=== PATIENT | female | born 1945 ===

== ENCOUNTER 2016-12-16 13:01 | Day surgery (SDC) | payer MEDICARE, MEDICAID ==
[2016-12-13 10:10] VITALS: BMI 34.0
[2016-12-16] MEDS ORDERED: Propofol 10 mg/ml Inj (20 ML) ONE ×2 (13:56→14:22)
--- NOTE | 2016-12-16 14:11 | CP.SDSHP ---
Same Day Surgery H & P - History Proposed Procedure: Removal of chemoport Pre-Op Diagnosis: Chemoport : completion of chemo - Previous Medical/Surgical History Cardiac: Hypertension Endocrine/Metabolic: Diabetes Pain: 0. No Pain Previous Surgical History: mastectomy, lung bx - Allergies Allergies: Allergies No Known Allergies Allergy (Verified 09/01/16 15:03) - Physical Exam General Appearance: NAD Vital Signs: Vital Signs 12/16/16 13:37 Temperature 98.6 F Pulse Rate 82 Respiratory 20 Rate Blood Pressure 147/89 O2 Sat by Pulse 98 Oximetry Mental Status: Alert & Oriented x3 Neuro: WNL Heart: WNL Lungs: WNL GI: WNL - {Optional Preform as Required} Breast: Other (s/p L mastectomy. well healed wound. R port) Abdomen: WNL Integument: WNL - Impression Impression: chemoport removal Pt. Evaluated Today:Candidate for Anesthesia & Procedure: Yes - Date & Time Date: 12/16/16 Time: 14:13 Short Stay Discharge - Short Stay Discharge Admitting Diagnosis/Reason for Visit: C50.9 Disposition: HOME/ ROUTINE Referrals: Vick Lambert [Primary Care Provider] - Follow-up: follow up with Dr. Rowland in 1-2 weeks. Ok to take shower tomorrow. Keep steristrips. Take pain med as needed.
[2016-12-16] MEDS ORDERED: Sodium Chloride 0.9% 1,000 ML IV ONE (14:21)
[2016-12-16] MEDS ORDERED: Midazolam 2 MG/2 ML VIAL ONE (14:22)
[2016-12-16] MEDS ORDERED: Lidocaine 1% Inj (20ml) ONE (14:32)
[2016-12-16] MEDS ORDERED: Bupivacaine 0.5% Inj(30mL) ONE (14:32)
[2016-12-16] MEDS ORDERED: Lidocaine 1% Inj (20ml) IJ ONE (14:37)
[2016-12-16] MEDS ORDERED: Oxycodone/Acetaminophen 5/325 mg Tab PO PRN (15:06)
--- NOTE | 2016-12-16 15:06 | PCM.SURG1 ---
Surgeon's Initial Post Op Note - Surgeon's Notes Surgeon: Dr. Rowland Band Singer: Hero Lazcano PGY2 Type of Anesthesia: IV Sedation, Local Pre-Operative Diagnosis: Breast CA s/p chemo Operative Findings: Port on R chest Post-Operative Diagnosis: Same Operation Performed: Removal of port Specimen/Specimens Removed: Port Estimated Blood Loss: EBL {In ML}: 5 Blood Products Given: N/A Drains Used: No Drains Post-Op Condition: Good Date of Surgery/Procedure: 12/16/16 Time of Surgery/Procedure: 15:06
[2016-12-16] MEDS ORDERED: HYDROmorphone 0.5 mg/0.5 ml ISec IVP PRN (15:19)
[2016-12-16] MEDS ORDERED: Sodium Chloride 0.9% 1,000 ML IV SCH (15:30)
[2016-12-16 16:07] VITALS: RESP 18
[2016-12-16 16:39] VITALS: O2SAT 98
[2016-12-16] MEDS ORDERED: Oxycodone/Acetaminophen 5/325 mg Tab PO ONE (17:41)
[2016-12-16 17:44] VITALS: BP 134/78; PULSE 85; TEMP 97.8
--- NOTE | 2016-12-17 23:12 | OP ---
PROCEDURE DATE: 12/16/2016 SURGEON: Domenico Rowland MD TILE DITCHER: Dr. Lazcano. ANESTHESIA: Local with IV sedation. ANESTHESIOLOGIST: Dr. Gómez. PREOPERATIVE DIAGNOSIS: Breast cancer status post chemotherapy. POSTOPERATIVE DIAGNOSIS: Breast cancer status post chemotherapy. PROCEDURE: Removal of right jugular Port-A-Cath. DESCRIPTION OF OPERATION: With the patient in the supine position having received IV sedation, the right upper chest and lower neck were prepped and draped in the usual sterile manner. The patient had a palpable Port-A-Cath in the right pectoral region with no surrounding ulceration or inflammation. The scar area was infiltrated with 1% lidocaine and then transverse incision was made taking down to the half portion of the port. The catheter was identified and dissected and then extracted from the vein with no difficulty, no bleeding was noted, using gentle traction on the catheter, the reservoir was then sharply dissected free of the subcutaneous pocket and removed. The pocket was also examined for hematosis and closure was also performed with running subcuticular suture of 4-0 Monocryl and Steri-Strips. Dry sterile dressing was applied. The patient tolerated the procedure well and transferred to recovery room in stable condition. Estimated blood loss for the procedure was 2 mL. Domenico Rowland MD [email or web address]
== END 2016-12-16 18:00 | disposition home or self-care (01) ==
LOC: H.OPSURG 13:01
PROVIDERS: ATTEND Specialist
DX: C50.912 Malignant neoplasm of unspecified site of left female breast (principal); I10 Essential (primary) hypertension; E11.9 Type 2 diabetes mellitus without complications; F41.9 Anxiety disorder, unspecified; M19.90 Unspecified osteoarthritis, unspecified site; D64.9 Anemia, unspecified
CPT/HCPCS: 36590; 82948; 88304; J0690; J2001; J2250; J2704; J3010; J7030; J7040